=== PATIENT | male | born 1995 | race Caucasian/White ===

== ENCOUNTER 2017-07-04 00:06 | Inpatient (IN) ==
[2017-07-04] MEDS ORDERED: hydrOXYzine pamoate 25 MG CAPSULE PO PRN (00:13)
[2017-07-04] MEDS ORDERED: traZODone 50 MG TABLET PO PRN (00:13)
[2017-07-04] MEDS ORDERED: Mag Hydrox/Al Hydrox/Simeth 30 ML UDC PO PRN (00:13)
[2017-07-04] MEDS ORDERED: *HR* LORazepam 1 MG TABLET PO PRN (00:13)
[2017-07-04] MEDS ORDERED: Acetaminophen 325 MG TABLET PO PRN (00:13)
[2017-07-04] MEDS ORDERED: MOM Conc 10 ML UD.LIQ PO PRN (00:13)
[2017-07-04] MEDS ORDERED: *HR* LORazepam 2 MG/ML VIAL IM PRN (00:13)
[2017-07-04] MEDS ORDERED: Haloperidol Lactate 5 MG/ML VIAL IM PRN (00:13)
[2017-07-04] MEDS: Nicotine 2 MG GUM BC PRN ×2 (10:17→20:46)
--- NOTE | 2017-07-04 10:58 | Psychiatry History & Physical ---
Date of Encounter: 07/04/17 Time of Encounter: 10:00 History of Present Illness Patient Stated Chief Complaint: Suicidal ideation Medicare Admission Attestation: For traditional Medicare patients the provided hospital inpatient services are reasonable and necessary and in the case of services not specified as inpatient -only under 42 CFR 419.22 (n), that they are appropriately provided as inpatient services in accordance 42 CFR 412.3. For Critical Access Hospital the patient may reasonably be expected to be discharged or transferred to a hospital within 96 hours after admission to the Critical Access Hospital. Admitted From: Hospital to Hospital Transfer ([facility]) History of Present Illness: Mr. Pack is a 22 year old male transferred from [facility] for suicidal ideation with plans to shoot himself. Patient is currently in a drug rehabilitation program and prior to this she was in alf for 2 weeks, he relapsed using drugs including marijuana and cocaine, Suboxone and others. He is court-ordered for 120 days treatment. Patient is stressed out by some domestic and relationship issues, cheating, on his significant other. He reports poor sleep, irritability , mood swings and suicidal ideation with plan to shoot himself in addition to being angry at people and making homicidal threats without specific. Patient had previous hospitalization in this hospital last year and also hospitalization at [facility] and [facility]. UDS reported negative. Past Med Surg Social Fam HX - Past Medical History Medical history: hepatitis, other - Past Psychiatric History Psychiatric history: Reports: depression, prior suicide attempt, previous psychiatric hospitalization Past psychiatric history details: Hospitalization in 2015. - Past Surgical History Surgical History: appendectomy - Social History Smoking Status: Current every day smoker Smokeless Tobacco Status: No Alcohol use: occasionally Drug use: opiates, marijuana, methamphetamine, IV Drug Use Medications & Allergies No Known Home Drugs 07/04/17 [History] 3 Allergy/AdvReac Type Severity Reaction Status Date / Time tramadol [From Ultram] Allergy Rash Verified 06/06/17 12:19 Review of Systems Psychiatric: Reports: suicidal ideation, homicidal ideation, irritability, mood swings Mental Status Exam Patient orientation: Yes Person, Yes Time, Yes Place Level of alertness: Alert Patient appearance: Appropriate, Unkempt Behavior: calm, cooperative, anxious Psychomotor activity: Increased Eye contact: Maintains Eye Contact Mood description: Euthymic/stable, Angry, Irritable Affect description: congruent with mood, labile Speech pattern: Normal rate, Normal rhythm, Normal tone Speech volume: Normal Thought process: Linear, Goal Oriented Thought content: Yes Suicidal ideation, Yes Homicidal ideation, No Overt delusions Perceptual disturbances: No Auditory hallucinations, No Visual hallucinations Attention span: Capable of Focused Attention Memory description: Grossly Intact Patient reliability: Reliable Historian Intelligence estimate: Average Judgment: Limited Insight: Partial Results - Vital Signs Vital signs: Temp Pulse Resp BP 98 F 65 16 133/84 07/04/17 09:00 07/04/17 09:00 07/04/17 09:00 07/04/17 09:00 Assessment and Plan (1) Suicidal behavior Current visit: No Status: Acute Plan: Admit inpatient for safety and stabilization, Close observation, Suicide Precautions per unit protocol, Encourage participation in unit milieu, Group Therapy, Monitor sleep, Monitor appetite Additional Plan: Discussed medication treatment was patient. We will order citalopram 20 mg daily, and Abilify 10 mg daily. Benefits and side effects were discussed patient is agreeable to start and will monitor Patient also was educated about substance abuse and need to continue sobriety. Risks, benefits, side effects, alternatives discussed w/pt: Yes Patient agreeable to treatment: Yes Qualifiers: Attempted self-injury: with attempted self-injury Qualified Code(s): T14.91XA - Suicide attempt, initial encounter (2) Substance abuse or dependence Current visit: No Status: Chronic Plan: Admit inpatient for safety and stabilization, Close observation, Suicide Precautions per unit protocol, Encourage participation in unit milieu, Group Therapy, Monitor sleep, Monitor appetite Risks, benefits, side effects, alternatives discussed w/pt: Yes Patient agreeable to treatment: Yes
[2017-07-04] MEDS: ARIPiprazole 10 MG TABLET PO SCH (11:54)
[2017-07-05] MEDS: ARIPiprazole 10 MG TABLET PO SCH (09:13)
[2017-07-05] MEDS: Nicotine 2 MG GUM BC PRN (12:14)
--- NOTE | 2017-07-05 14:32 | Psychiatry Progress Note ---
Date of Encounter: 07/05/17 Time of Encounter: 14:28 Subjective Interval history: Patient she will follow up. Staff report he is compliant with medication, cooperative and participated in activities. 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 He is not endorsing suicidal or homicidal ideation and denies any side effects to medication. He denies any irritability or mood swings. Review of Systems Psychiatric: Reports: suicidal ideation, homicidal ideation, irritability, mood swings Objective: Exam Patient orientation: Yes Person, Yes Time, Yes Place Level of alertness: Alert Patient appearance: Appropriate, Well Groomed Behavior: calm, cooperative Psychomotor activity: Normal Eye contact: Maintains Eye Contact Mood description: Euthymic/stable, Labile Affect description: congruent with mood, labile Speech pattern: Normal rate, Normal rhythm, Normal tone Speech volume: Normal Thought process: Linear, Goal Oriented Thought content: No Suicidal ideation, No Homicidal ideation, No Overt delusions Perceptual disturbances: No Auditory hallucinations, No Visual hallucinations Judgment: Fair Insight: Partial Results - Vital Signs Vital Signs: Temp Pulse Resp BP 98.0 F 74 16 126/92 07/05/17 09:00 07/05/17 09:00 07/05/17 09:00 07/05/17 09:00 Assessment and Plan (1) Suicidal behavior Current visit: No Status: Acute Plan: Continue hospitalization, Close observation, Suicide Precautions per unit protocol, Encourage participation in unit milieu, Group Therapy, Monitor sleep, Monitor appetite Risks, benefits, side effects, alternatives discussed w/pt: Yes Patient agreeable to treatment: Yes Qualifiers: Attempted self-injury: with attempted self-injury Qualified Code(s): T14.91XA - Suicide attempt, initial encounter (2) Substance abuse or dependence Current visit: No Status: Chronic Plan: Continue hospitalization, Close observation, Suicide Precautions per unit protocol, Encourage participation in unit milieu, Group Therapy, Monitor sleep, Monitor appetite Risks, benefits, side effects, alternatives discussed w/pt: Yes Patient agreeable to treatment: Yes Consult Discharge Plan - Plan Referrals: NONE,PCP [Primary Care Provider] -
[2017-07-06 09:00] VITALS: BP 143/86
[2017-07-06] MEDS: ARIPiprazole 10 MG TABLET PO SCH (09:05)
[2017-07-06] MEDS: Nicotine 2 MG GUM BC PRN (14:08)
--- NOTE | 2017-07-06 14:58 | Discharge Summary ---
Date of Encounter: 07/06/17 Time of Encounter: 14:51 Diagnosis - Discharge Diagnosis (1) Suicidal behavior Status: Acute Qualifiers: Attempted self-injury: with attempted self-injury Qualified Code(s): T14.91XA - Suicide attempt, initial encounter (2) Substance abuse or dependence Status: Chronic Medications - Discharge Medications Prescriptions: ARIPiprazole [Abilify] 10 mg PO DAILY #30 tablet Citalopram [CeleXA] 20 mg PO DAILY #30 tablet traZODone [TraZODone] 50 mg PO HS PRN #30 tablet PRN Reason: Insomnia ARIPiprazole [Abilify] 10 mg PO DAILY #30 tablet 07/06/17 [Rx] Citalopram [CeleXA] 20 mg PO DAILY #30 tablet 07/06/17 [Rx] traZODone [TraZODone] 50 mg PO HS PRN #30 tablet 07/06/17 [Rx] 3 Allergy/AdvReac Type Severity Reaction Status Date / Time tramadol [From Ultra] Allergy Rash Verified 06/06/17 12:19 Provider Date of admission: 07/04/17 00:06 Primary care physician: PCP NONE Consults: 07/04/17 00:51 Consult to Pastoral Services [CONS] Routine Comment: Discharging clinician: Fili Wahl Assessment and Plan - Patient/Caregiver Discharge Instructions Activity: resume usual activities as tolerated Diet: regular diet - Follow up Plan Follow up with: [facility] Rylan Workman [Outside] - 08/10/17 9:00 am (The above appointment is with Dr. Marichuy Campuzano for outpatient psychiatric assessment and medication management services. Please arrive 15 minutes early to complete paperwork. Please bring your insurance card, photo ID and medications in their original bottles. If you do not have insurance, bring proof of income to apply for the sliding fee scale. If you are unable to keep this appointment, 24 hour business notice of cancellation is expected. The above appointment(s) reflects first availability. You may contact the office regularly to check for cancellations that may allow you to be seen sooner.) [facility] [Outside] - 07/11/17 1:00 pm (The above appointment is with [facility] for outpatient substance abuse and mental health counseling services. ) Functional capacity at discharge: independent ambulation Overall status at discharge: Stable Disposition: Home, Self-Care Hospital Course Hospital course: Mr. Pack is a 22 year old male admitted for depression and suicidal ideation. For details of the admission please see H&P On the unit patient was started on Abilify, Celexa and trazodone. Patient reported improved sleep, less anxiety, no racing thoughts. He participated in activities. He denies suicidal ideation he was motivated to continue his treatment as outpatient. His discharge plans were completed by social work. On discharge patient was medically stable nonsuicidal. He was educated about substance abuse and compliance with treatment. He is discharged in stable condition. - Time Spent with Patient Total time spent providing and/or coordinating discharge services: Less than 30 minutes Quality - Multiple Antipsychotics Patient discharged on 2 or more antipsychotic medications: No Procedures - Procedures Procedures: Medication Management, Crisis Stabilization, Supportive Therapy, Group Therapy, Psychoeducational Therapy Mental Status Exam - Mental Status Exam Patient orientation: Yes Person, Yes Time, Yes Place Level of alertness: Alert Patient appearance: Appropriate, Well Groomed Behavior: calm, cooperative Psychomotor activity: Normal Eye contact: Maintains Eye Contact Mood description: Euthymic/stable Affect description: congruent with mood, full range Speech pattern: Normal rate, Normal rhythm, Normal tone Speech Volume: Normal Thought process: Linear, Goal Oriented Thought Content: No Suicidal ideation, No Homicidal ideation, No Overt delusions Perceptual Disturbances: No Auditory hallucinations, No Visual hallucinations Judgment: Limited Insight: Partial
== END 2017-07-06 17:55 | disposition home or self-care (01) | DRG 754 ==
LOC: 1ANU 00:06
PROVIDERS: ADMIT Psychiatry & Neurology Psychiatry; ATTEND Psychiatry & Neurology Psychiatry

== ENCOUNTER 2018-05-14 17:03 | Inpatient (IN) ==
--- NOTE | 2018-05-14 18:06 | Emergency Department Note ---
Disposition Clinical Impression: Suicidal ideation Disposition: Still a Patient Referrals: NONE,PCP [Primary Care Provider] - Forms: ED Satisfaction Letter Time of Disposition: 19:19 General Adult HPI - General Chief complaint: ED Psychiatric Symptoms Stated complaint: SI Time Seen by Provider: 05/14/18 18:04 Source: patient Limitations: no limitations - History of Present Illness HPI Narrative: This is a 20-year-old male who states he has a meth and heroin addict and has not had any of either for the last few days who states that he has been feeling like getting a gun from a friend and killing himself. He has been feeling this way for 2 days. States he has not taken Abilify her Celexa for the last 2 months. Pain Scale: 8 - Related Data Previous Rx's Medication Instructions Recorded Clindamycin HCl 450 mg PO TID 10 Days capsule 08/23/17 Allergies Allergy/AdvReac Type Severity Reaction Status Date / Time tramadol [From Ultra] Allergy Rash Verified 05/14/18 17:15 All systems ED: reviewed and negative except as stated. Psychiatric: Reports: suicidal thoughts Past Medical History - Past Medical History Medical history: Reports: hepatitis Surgical history: Reports: appendectomy Psychiatric history: Reports: depression, prior suicide attempt, previous psychiatric hospitalization - Social History Smoking Status: Current every day smoker Smokeless Tobacco Status: No Alcohol use: Reports: occasionally Drug use: Reports: opiates, marijuana, methamphetamine, IV Drug Use Physical Exam - General Limitations: no limitations General appearance: alert, in no apparent distress - Head Head exam: atraumatic, normocephalic, normal inspection - Eye Eye exam: Present: normal appearance, PERRL, EOMI - Chest Chest inspection: Present: normal inspection, symmetric chest wall rise - Respiratory Respiratory exam: Present: normal lung sounds bilaterally - Cardiovascular Cardiovascular exam: Present: regular rate, normal rhythm, normal heart sounds - Abdominal Exam Abdominal exam: Present: soft, Non-Tender. Absent: tenderness, distention, guarding, rebound, rigidity - Extremities Exam Extremities exam: Present: normal inspection, full ROM. Absent: tenderness, pedal edema - Neurological Exam Neurological exam: Present: alert, oriented X3 - Psychiatric Psychiatric exam: Present: depressed, suicidal ideation - Skin Skin exam: Present: warm, dry, rash Course Course Narrative: This is a 25-year-old male with suicidal ideation and apparently prior attempts. Vital Signs Temperature 97.9 F 05/14/18 17:14 Pulse Rate 79 05/14/18 17:14 Respiratory Rate 16 05/14/18 17:14 Blood Pressure 143/79 05/14/18 17:14 O2 Sat by Pulse Oximetry 97 05/14/18 17:14 Temperature 97.9 F 05/14/18 17:49 Pulse Rate 79 05/14/18 17:49 Respiratory Rate 16 05/14/18 17:49 Blood Pressure 143/79 05/14/18 17:49 O2 Sat by Pulse Oximetry 97 05/14/18 17:49 Oxygen Delivery Oxygen Delivery Room Air Medical Decision Making - MDM Narrative Medical decision making narrative: This is a 23-year-old male with heroin and meth abuse who reports suicidal ideation, having not taken his antipsychotic or antidepressant for more than 2 months. - Lab Data Lab results narrative: CBC was unremarkable Result diagrams: 05/14/18 18:13 Lab Results 05/14/18 Range/Units 18:13 WBC 3.9 L (4.3-11.1) K/mcL RBC 4.78 (4.19-5.50) M/mcL Hgb 14.1 (12.9-16.9) g/dL Hct 41.4 (37.5-50.1) % MCV 86.6 (83.0-100.0) fL MCH 29.5 (28.0-33.3) pg MCHC 34.1 (31.6-35.5) g/dL RDW 12.1 (11.5-14.5) % Plt Count 173 (140-400) K/mcL MPV 10.4 (9.4-12.4) fL Immature Gran % 0.5 (0-4) % Seg Neutrophils % 74.1 % Lymphocytes % 11.8 % Monocytes % 10.0 % Eosinophils % 3.1 % Basophils % 0.5 % Neutrophils # 2.9 (1.6-8.9) K/mcL Lymphocytes # 0.5 L (0.6-4.6) K/mcL Monocytes # 0.4 (0.0-1.3) K/mcL Eosinophils # 0.1 (0.0-0.6) K/mcL Basophils # 0.0 (0.0-0.2) K/mcL
[2018-05-14 18:57] LABS: Basophils % 0.5 %; Eosinophils # 0.1 K/mcL (0.0-0.6); Eosinophils % 3.1 %; Hematocrit 41.4 % (37.5-50.1); Hemoglobin 14.1 g/dL (12.9-16.9); Immature Granulocytes % 0.5 % (0-4); Lymphocytes # 0.5 K/mcL (0.6-4.6); Lymphocytes % 11.8 %; Mean Corpuscular HGB Conc 34.1 g/dL (31.6-35.5); Mean Corpuscular Hemoglobin 29.5 pg (28.0-33.3); Mean Corpuscular Volume 86.6 fL (83.0-100.0); Mean Platelet Volume 10.4 fL (9.4-12.4); Monocytes # 0.4 K/mcL (0.0-1.3); Neutrophils # 2.9 K/mcL (1.6-8.9); Platelet Count 173 K/mcL (140-400); Red Blood Count 4.78 M/mcL (4.19-5.50); Red Cell Distribution Width 12.1 % (11.5-14.5); Segmented Neutrophils % 74.1 %
[2018-05-14 19:18] LABS: Acetaminophen < 10 mcg/mL (10-20); BUN/Creatinine Ratio 13 (6-26); Blood Urea Nitrogen 12 mg/dL (6-20); Calcium 8.9 mg/dL (8.6-10.3); Carbon Dioxide 27 mEq/L (23-29); Chloride 99 mEq/L (98-107); Ethanol < 10 mg/dL (Less than 10); Glucose 111 mg/dL (70-105); Osmolality,Calculated 272 (280-300); Potassium 3.9 mEq/L (3.5-5.1); Salicylate < 2.5 mg/dL (15.0-30.0); Sodium 131 mEq/L (136-145); eGFR For Non-African Americans > 60 (> 60)
[2018-05-14 19:47] LABS: Bilirubin,Urine Negative (Negative); Blood,Urine Negative (Negative); Clarity,Urine Clear (Clear); Color,Urine Yellow (Yellow); Glucose,Urine (UA) Normal (Normal); Ketones,Urine Negative (Negative); Leukocyte Esterase,Urine Negative (Negative); Nitrite,Urine Negative (Negative); Protein,Urine Negative (Neg-Trace); Specific Gravity,Urine 1.015 (1.010-1.025); Urobilinogen,Urine >=8.0 mg/dL (Normal)
[2018-05-14 19:56] LABS: Amphetamine Screen,Urine Positive ng/mL (Cutoff=1000); Barbiturate Screen,Urine Negative ng/mL (Cutoff=200); Benzodiazepines Screen,Urine Negative ng/mL (Cutoff=200); Cannabinoid Screen,Urine Positive ng/mL (Cutoff = 50); Cocaine Screen,Urine Negative ng/mL (Cutoff= 300); Opiate Screen,Urine Positive ng/mL (Cutoff=300); Phencyclidine Screen,Urine Negative ng/mL (Cutoff=25)
[2018-05-15] MEDS ORDERED: Haloperidol Lactate 5 MG/ML VIAL IM PRN (00:02)
[2018-05-15] MEDS ORDERED: hydrOXYzine pamoate 25 MG CAPSULE PO PRN (00:02)
[2018-05-15] MEDS ORDERED: Acetaminophen 325 MG TABLET PO PRN (00:02)
[2018-05-15] MEDS ORDERED: Nicotine 2 MG GUM BC PRN (00:02)
[2018-05-15] MEDS ORDERED: MOM Conc 10 ML UD.LIQ PO PRN (00:02)
[2018-05-15] MEDS ORDERED: *HR* LORazepam 1 MG TABLET PO PRN (00:02)
[2018-05-15] MEDS ORDERED: *HR* LORazepam 2 MG/ML VIAL IM PRN (00:02)
[2018-05-15] MEDS ORDERED: Mag Hydrox/Al Hydrox/Simeth 30 ML UDC PO PRN (00:02)
[2018-05-15] MEDS ORDERED: Ondansetron ODT 4 MG TAB.RAPDIS SL PRN (10:49)
--- NOTE | 2018-05-15 10:55 | Psychiatry History & Physical ---
Date of Encounter: 05/15/18 Time of Encounter: 10:45 History of Present Illness Patient Stated Chief Complaint: I had suicidal thinking, I came in before I complerted suicdie Medicare Admission Attestation: For traditional Medicare patients the provided hospital inpatient services are reasonable and necessary and in the case of services not specified as inpatient -only under 42 CFR 419.22 (n), that they are appropriately provided as inpatient services in accordance 42 CFR 412.3. For Critical Access Hospital the patient may reasonably be expected to be discharged or transferred to a hospital within 96 hours after admission to the Critical Access Hospital. Admitted From: Emergency Dept Plans for Post Hospital Care: Home History of Present Illness: Mr. Pack is a 23 year old male The patient is a 23-year-old single white male. The patient was admitted from the emergency room. Chief complaint suicidal thinking, I wanted to get admitted before acted on these thoughts. History of present illness. The patient is a fair historian and is able to provide an interval history. I also relied on the discharge summary of 2015. The patient has had 2 suicide attempts the first was age 17 when he tried to hang himself and he was sent to [facility]. The second was an overdose of Tylenol and this is summarized in the 2016 summary. In the past patient was treated for major depression recurrent severe. The patient has had no recent treatment. He is currently trying to get into rehabilitation. He had been in a rehabilitation program but he left the program. He wanted to use he wanted to get high. The patient has previously been treated with Suboxone. He says it got him strung out. The patient has never been treated with methadone. The patient has been on long acting naltrexone. He received a few injections while he maintained sobriety from opiates he was using other drugs during the time. The patient's current problem is with heroin and methamphetamine. He is using and his last use was May 13. The drug screen was positive for heroin and methamphetamine and marijuana. The patient is currently on probation. He has a few years hanging over head he has not reported to his by mouth lately. The patient was told that he needed to get clean and to go to rehabilitation or he would go to skilled nursing. The past psychiatric history: [facility] Past medical history: Surgeries: Appendix Illnesses: Hepatitis C Allergies: Tramadol Medicines Abilify and Celexa dose unknown last take 45 days ago. PCP none Family history: Mom nerve problem dad and mother had a drug problem dad also had an alcohol problem no history of suicide or Social history grew up in [facility] sixth-grade he fathered a child. 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 He has no work history. 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 Review of systems significant for "opiate withdrawal symptoms also cramps. pain , sweats Past Med Surg Social Fam HX - Past Medical History Source: patient Medical history: hepatitis - Past Psychiatric History Psychiatric history: Reports: previous psychiatric hospitalization Family psychiatric history: Yes Family History of Suicide: None - Past Surgical History Surgical History: appendectomy - Social History Smoking Status: Current every day smoker Smokeless Tobacco Status: No Alcohol use: occasionally Drug use: opiates, marijuana, methamphetamine, IV Drug Use Occupational status: unemployed Current living situation: Homeless Activity Level: Independent ambulation Recent Out of Country Travel Within the Last 8 Weeks: No Exposure or Possible Exposure to Illness During Travel: No Medications & Allergies Clindamycin HCl 450 mg PO TID 10 Days capsule 08/23/17 [Rx] 3 Allergy/AdvReac Type Severity Reaction Status Date / Time tramadol [From [facility]] Allergy Rash Verified 05/14/18 17:15 Review of Systems Constitutional: Reports: night sweats Eyes: Denies: eye pain, vision change Ears, Nose, Throat: Denies: ear pain, throat pain, dental pain, hearing loss, congestion Cardiovascular: Denies: chest pain, palpitations, dyspnea on exertion Respiratory: Denies: cough, dyspnea, wheezes Gastrointestinal: Reports: abdominal pain, nausea Genitourinary male: Denies: urgency, dysuria, frequency, genital lesions Musculoskeletal: Reports: joint pain, myalgia Integumentary: Denies: rash, lesions, pruritus Neurological: Denies: headache, weakness, numbness, memory loss Psychiatric: Reports: depression, abnormal sleep pattern, suicidal ideation Endocrine: Reports: fatigue Hematologic/Lymphatic: Denies: easy bruising, lymphadenopathy Allergic/Immunologic: Denies: urticaria, itchy eyes Exam - HEENT Head exam IM: Present: atraumatic Eye exam IM: Present: EOMI, normal appearance, PERRL ENT exam IM: Present: normal exam - Neurological Neurological exam: Present: CN II-XII intact - Respiratory Respiratory exam IM: Present: CTAB - GI/Abdominal GI/Abdominal exam IM: Present: normal bowel sounds, soft. 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 He declined. The patient completed a limited physical exam. - Constitutional Vitals: Temp Pulse Resp BP Pulse Ox 100.1 F H 75 16 93/65 97 05/15/18 09:00 05/15/18 09:00 05/15/18 09:00 05/15/18 09:00 05/14/18 17:49 General appearance: age & developmentally appropriate, thin - Musculoskeletal Gait: normal Station: relaxed Strength & Tone: normal for patient - Psychiatric Patient Orientation: Yes Person, Yes Time, Yes Place Level of alertness: Alert Behavior: calm, withdrawn Psychomotor activity: Slowed Eye Contact: Maintains Eye Contact Mood Description: Depressed Affect description: congruent with mood, dysphoric Speech Volume: Normal Speech pattern: normal rate, normal rhythm, normal tone, fluent, spontaneous Language & Vocabulary: consistent with education Thought Process: Linear, Goal Oriented Thought Content: Yes Suicidal ideation, No Homicidal ideation, No Overt delusions Perceptual Disturbances: No Auditory hallucinations, No Visual hallucinations Attention Span Ability: Capable of Sustained Attention Memory Description: Grossly Intact Patient Reliability: Reliable Historian Fund of knowledge: Yes abstraction ability, Yes average Intelligence Estimate: Average Judgment: Limited Insight: Minimal Results - Labs Labs: Laboratory Last Values WBC 3.9 K/mcL (4.3-11.1) L 05/14/18 18:13 RBC 4.78 M/mcL (4.19-5.50) 05/14/18 18:13 Hgb 14.1 g/dL (12.9-16.9) 05/14/18 18:13 Hct 41.4 % (37.5-50.1) 05/14/18 18:13 MCV 86.6 fL (83.0-100.0) 05/14/18 18:13 MCH 29.5 pg (28.0-33.3) 05/14/18 18:13 MCHC 34.1 g/dL (31.6-35.5) 05/14/18 18:13 RDW 12.1 % (11.5-14.5) 05/14/18 18:13 Plt Count 173 K/mcL (140-400) 05/14/18 18:13 MPV 10.4 fL (9.4-12.4) 05/14/18 18:13 Immature Gran % 0.5 % (0-4) 05/14/18 18:13 Seg Neutrophils % 74.1 % 05/14/18 18:13 Lymphocytes % 11.8 % 05/14/18 18:13 Monocytes % 10.0 % 05/14/18 18:13 Eosinophils % 3.1 % 05/14/18 18:13 Basophils % 0.5 % 05/14/18 18:13 Neutrophils # 2.9 K/mcL (1.6-8.9) 05/14/18 18:13 Lymphocytes # 0.5 K/mcL (0.6-4.6) L 05/14/18 18:13 Monocytes # 0.4 K/mcL (0.0-1.3) 05/14/18 18:13 Eosinophils # 0.1 K/mcL (0.0-0.6) 05/14/18 18:13 Basophils # 0.0 K/mcL (0.0-0.2) 05/14/18 18:13 Sodium 131 mEq/L (136-145) L 05/14/18 18:13 Potassium 3.9 mEq/L (3.5-5.1) 05/14/18 18:13 Chloride 99 mEq/L (98-107) 05/14/18 18:13 Carbon Dioxide 27 mEq/L (23-29) 05/14/18 18:13 BUN 12 mg/dL (6-20) 05/14/18 18:13 Creatinine 0.90 mg/dL (0.70-1.30) 05/14/18 18:13 Est GFR ( Amer) > 60 (> 60) 05/14/18 18:13 Est GFR (Non-Af Amer) > 60 (> 60) 05/14/18 18:13 BUN/Creatinine Ratio 13 (6-26) 05/14/18 18:13 Glucose 111 mg/dL (70-105) H 05/14/18 18:13 Calculated Osmolality 272 (280-300) L 05/14/18 18:13 Calcium 8.9 mg/dL (8.6-10.3) 05/14/18 18:13 Urine Color Yellow (Yellow) 05/14/18 19: Urine Clarity Clear (Clear) 05/14/18 19: Urine pH 7.0 pH Units (5.0-8.0) 05/14/18 19: Ur Specific [place] 1.015 (1.010-1.025) 05/14/18 19: Urine Protein Negative mg/dL (Neg-Trace) 05/14/18: Urine Glucose (UA) Normal mg/dL (Normal) 05/14/18 19: Urine Ketones Negative mg/dL (Negative) 05/14/18: Urine Blood Negative (Negative) 05/14/18: Urine Nitrite Negative (Negative) 05/14/18: Urine Bilirubin Negative (Negative) 05/14/18: Urine Urobilinogen >=8.0 mg/dL (Normal) H 05/14/18 19:29 Ur Leukocyte Esterase Negative (Negative) 05/14/18 19: Ur Culture Indicated? NO (NO) 05/14/18 19:29 Salicylates < 2.5 mg/dL (15.0-30.0) L 05/14/18 18:13 Urine Opiates Screen Positive ng/mL (Rtmkkf=644) H 05/14/18 19:29 Acetaminophen < 10 mcg/mL (10-20) L 05/14/18 18:13 Ur Barbiturates Screen Negative ng/mL (Fibcqv=587) 05/14/18 19: Ur Phencyclidine Scrn Negative ng/mL (Cutoff=25) 05/14/18 19:29 Ur Amphetamines Screen Positive ng/mL (Pkimay=6623) H 05/14/18 19: U Benzodiazepines Scrn Negative ng/mL (Tpboss=936) 05/14/18 19: Urine Cocaine Screen Negative ng/mL (Cutoff= 300) 05/14/18: U Marijuana (THC) Screen Positive ng/mL (Cutoff = 50) H 05/14/18 19:29 Ur Drug Screen Interp See Below 05/14/18 19: Ethyl Alcohol < 10 mg/dL (Less than 10) 05/14/18 18:13 Assessment and Plan (1) Major depressive disorder, recurrent severe without psychotic features Current visit: Yes Status: Acute Plan: Admit inpatient for safety and stabilization, Close observation, Suicide Precautions per unit protocol, Encourage participation in unit milieu, Group Therapy, Monitor sleep, Monitor appetite, Secure weapons Risks, benefits, side effects, alternatives discussed w/pt: Yes Patient agreeable to treatment : Yes Plans for Post Hospital Care: Home Estimated Length of Stay (Days): 8 (2) Opioid dependence with withdrawal Current visit: Yes Status: Acute Plan: Monitor sleep, Monitor appetite Risks, benefits, side effects, alternatives discussed w/pt: Yes Patient agreeable to treatment: Yes Plans for Post Hospital Care: Home (3) Cigarette smoker two packs a day or less Current visit: Yes Status: Chronic Plan: Other Risks, benefits, side effects, alternatives discussed w/pt: Yes Patient agreeable to treatment: Yes Plans for Post Hospital Care: Home (4) Suicidal ideation Current visit: Yes Status: Acute Plan: Suicide Precautions per unit protocol, Encourage participation in unit milieu, Secure weapons Risks, benefits, side effects, alternatives discussed w /pt: Yes Patient agreeable to treatment: Yes Plans for Post Hospital Care: Home
[2018-05-15] MEDS: Baclofen 10 MG TABLET PO SCH ×3 (11:42→21:19)
[2018-05-15] MEDS: cloNIDine HCl 0.1 MG TABLET PO SCH ×3 (11:42→21:20)
[2018-05-15] MEDS: ARIPiprazole 2 MG TABLET PO SCH (21:19)
[2018-05-16] MEDS: cloNIDine HCl 0.1 MG TABLET PO SCH ×3 (09:01→21:25)
[2018-05-16] MEDS: Baclofen 10 MG TABLET PO SCH ×3 (09:01→21:25)
--- NOTE | 2018-05-16 13:45 | Psychiatry Progress Note ---
Date of Encounter: 05/16/18 Time of Encounter: 13:15 Subjective Interval history: D the patient is a 23-year-old white male. He was seen at bedside per his request. Chief complaint I feel terrible. I have a headache have nausea. History of present illness. The patient has been admitted for major depression and opiate withdrawal. He is being treated with comfort meds but continues to have sweats nausea sedation myalgias. He is complained of a headache. Patient has a variety of legal problems as well. Suicidal ideation continues but is monitored. The patient asked for no additional medicines to help his treatment at this time. Review of Systems Musculoskeletal: Reports: joint pain, myalgia Integumentary: Reports: other Neurological: Reports: headache Psychiatric: Reports: depression, abnormal sleep pattern, suicidal ideation, irritability Allergic/Immunologic: Reports: other Results - Vital Signs Vital Signs: Temp Pulse Resp BP Pulse Ox 98.7 F 98 22 98/65 97 05/16/18 09:00 05/16/18 09:00 05/16/18 09:00 05/16/18 09:00 05/14/18 17:49 Assessment and Plan (1) Major depressive disorder, recurrent severe without psychotic features Current visit: Yes Status: Acute Plan: Continue hospitalization, Close observation, Suicide Precautions per unit protocol, Encourage participation in unit milieu, Group Therapy, Monitor sleep, Monitor appetite, Secure weapons Risks, benefits, side effects, alternatives discussed w/pt: Yes Patient agreeable to treatment: Yes (2) Opioid dependence with withdrawal Current visit: Yes Status: Acute Plan: Monitor sleep, Monitor appetite, Other Risks, benefits, side effects, alternatives discussed w/pt: Yes Patient agreeable to treatment: Yes (3) Cigarette smoker two packs a day or less Current visit: Yes Status: Chronic Plan: Other Risks, benefits, side effects, alternatives discussed w/pt: Yes Patient agreeable to treatment: Yes (4) Suicidal ideation Current visit: Yes Status: Acute Plan: Suicide Precautions per unit protocol, Encourage participation in unit milieu, Secure weapons Risks, benefits, side effects, alternatives discussed w /pt: Yes Patient agreeable to treatment: Yes Consult Discharge Plan - Plan Referrals: NONE,PCP [Primary Care Provider] - Psychiatry Exam - Constitutional Vitals: Temp Pulse Resp BP Pulse Ox 98.7 F 98 22 98/65 97 05/16/18 09:00 05/16/18 09:00 05/16/18 09:00 05/16/18 09:00 05/14/18 17:49 General appearance: age & developmentally appropriate, well-groomed, well- nourished - Musculoskeletal Gait: slow Strength & Tone: normal for patient - Psychiatric Patient Orientation: Yes Person, Yes Time, Yes Place Level of alertness: Alert Behavior: withdrawn Psychomotor activity: Slowed Eye Contact: Minimal Contact Mood Description: Irritable Affect description: congruent with mood, constricted, dysphoric Speech Volume: Normal Speech pattern: normal rate, normal rhythm, normal tone, fluent, spontaneous Language & Vocabulary: consistent with education Thought Process: Linear, Goal Oriented Thought Content: Yes Suicidal ideation, No Homicidal ideation, No Overt delusions Perceptual Disturbances: No Auditory hallucinations, No Visual hallucinations Attention Span Ability: Capable of Focused Attention Memory Description: Grossly Intact Patient Reliability: Reliable Historian Fund of knowledge: Yes abstraction ability, Yes aware of current events Intelligence Estimate: Average Judgment: Limited Insight: Minimal
[2018-05-16] MEDS: ARIPiprazole 2 MG TABLET PO SCH (21:25)
[2018-05-17] MEDS: traZODone 50 MG TABLET PO PRN ×2 (01:38→20:57)
[2018-05-17] MEDS: Baclofen 10 MG TABLET PO SCH ×3 (09:39→20:58)
[2018-05-17] MEDS: cloNIDine HCl 0.1 MG TABLET PO SCH ×3 (09:39→20:58)
--- NOTE | 2018-05-17 15:58 | Psychiatry Progress Note ---
Date of Encounter: 05/17/18 Time of Encounter: 15:45 Subjective Interval history: ID the patient is a 23-year-old white male. Chief complaint I am feeling better but still a little rough. History of present illness the patient continues to have depression he is tolerating citalopram at 10 mg and Abilify 2 mg. He notes his depression is still a problem but he is focused on sobriety. The patient would like to go stay with his grandmother until he can locate a rehabilitation program. The patient has tolerated the medicines for withdrawal. His had no significant EPS. He notes no suicidal plan while on the unit but remains under observation Review of Systems Psychiatric: Reports: depression, abnormal sleep pattern, suicidal ideation, irritability Results - Vital Signs Vital Signs: Temp Pulse Resp BP Pulse Ox 98 F 69 18 119/77 97 05/17/18 09:00 05/17/18 09:00 05/17/18 09:00 05/17/18 09:00 05/14/18 17:49 Assessment and Plan (1) Major depressive disorder, recurrent severe without psychotic features Current visit: Yes Status: Acute Plan: Continue hospitalization, Close observation, Suicide Precautions per unit protocol, Encourage participation in unit milieu, Group Therapy, Monitor sleep, Monitor appetite, Secure weapons, Family/Supportive other meeting Risks, benefits, side effects, alternatives discussed w/pt: Yes Patient agreeable to treatment: Yes (2) Opioid dependence with withdrawal Current visit: Yes Status: Acute Plan: Other Risks, benefits, side effects, alternatives discussed w/pt: Yes Patient agreeable to treatment: Yes (3) Cigarette smoker two packs a day or less Current visit: Yes Status: Chronic Risks, benefits, side effects, alternatives discussed w/pt: Yes Patient agreeable to treatment: Yes (4) Suicidal ideation Current visit: Yes Status: Acute Risks, benefits, side effects, alternatives discussed w/pt: Yes Patient agreeable to treatment: Yes Consult Discharge Plan - Plan Referrals: NONE,PCP [Primary Care Provider] - Psychiatry Exam - Constitutional Vitals: Temp Pulse Resp BP Pulse Ox 98 F 69 18 119/77 97 05/17/18 09:00 05/17/18 09:00 05/17/18 09:00 05/17/18 09:00 05/14/18 17:49 General appearance: age & developmentally appropriate, well-groomed, well- nourished - Musculoskeletal Gait: normal Station: relaxed Strength & Tone: normal for patient - Psychiatric Patient Orientation: Yes Person, Yes Time, Yes Place Level of alertness: Sedated Behavior: calm, cooperative Affect description: congruent with mood, full range, dysphoric Speech Volume: Normal Speech pattern: normal rate, normal rhythm, normal tone, fluent, spontaneous Language & Vocabulary: consistent with education Thought Process: Linear, Goal Oriented Thought Content: Yes Suicidal ideation, No Homicidal ideation, No Overt delusions Perceptual Disturbances: No Auditory hallucinations, No Visual hallucinations Attention Span Ability: Capable of Focused Attention Memory Description: Grossly Intact Patient Reliability: Questionable Historian Fund of knowledge: Yes abstraction ability, Yes aware of current events Intelligence Estimate: Average Judgment: Limited Insight: Minimal
[2018-05-17] MEDS: ARIPiprazole 2 MG TABLET PO SCH (20:57)
[2018-05-18] MEDS: cloNIDine HCl 0.1 MG TABLET PO SCH ×2 (08:04→14:17)
[2018-05-18] MEDS: Baclofen 10 MG TABLET PO SCH ×2 (08:04→14:17)
[2018-05-18 08:22] VITALS: BP 123/73
--- NOTE | 2018-05-18 12:58 | Discharge Summary ---
Date of Encounter: 05/18/18 Time of Encounter: 13:00 Diagnosis - Discharge Diagnosis (1) Major depressive disorder, recurrent severe without psychotic features Priority: Primary Status: Acute (2) Opioid dependence with withdrawal Priority: Secondary Status: Resolved (3) Cigarette smoker two packs a day or less Priority: Secondary Status: Chronic (4) Suicidal ideation Priority: Secondary Status: Acute Medications - Discharge Medications Baclofen [Lioresal] 10 mg PO TID tablet 05/18/18 [Rx] Citalopram [CeleXA] 20 mg PO DAILY tablet 05/18/18 [Rx] 3 Allergy/AdvReac Type Severity Reaction Status Date / Time tramadol [From Ultram] Allergy Rash Verified 05/14/18 17:15 Provider Date of admission: 05/14/18 23:34 Primary care physician: PCP NONE Discharging clinician: Tay Pino Psychiatry Exam - Constitutional Vitals: Temp Pulse Resp BP Pulse Ox 98.1 F 60 18 123/73 97 05/18/18 08:21 05/18/18 08:21 05/18/18 08:21 05/18/18 08:21 05/14/18 17:49 General appearance: age & developmentally appropriate - Musculoskeletal Gait: normal Station: relaxed Strength & Tone: normal for patient - Psychiatric Patient Orientation: Yes Person, Yes Time, Yes Place Level of alertness: Alert Behavior: calm Psychomotor activity: Normal Eye Contact: Maintains Eye Contact Mood Description: Euthymic/stable Affect description: congruent with mood Speech Volume: Normal Speech pattern: normal rate Language & Vocabulary: consistent with education Thought Process: Intact Thought Content: Yes Intact Perceptual Disturbances: No Auditory hallucinations, No Visual hallucinations Attention Span Ability: Capable of Focused Attention Memory Description: Grossly Intact Patient Reliability: Reliable Historian Fund of knowledge: Yes average, Yes aware of current events Intelligence Estimate: Average Judgment: Fair Insight: Partial Hospital Course Hospital course: Mr. Pack is a 23 year old male Chief complaint I need to clean up History of present illness the patient was admitted for major depression he had suicidal ideation. He thought about killing himself but came to the emergency room instead. The patient continued to have suicidal ideation. The patient developed depression and was seen previously. His medicines were restarted these included citalopram and Abilify but the patient had been in opiate withdrawal. He had some of the classic features of opiate withdrawal including restlessness insomnia muscle cramps nausea vomiting. The patient was treated with comfort meds including clonidine baclofen and Zofran. He gradually improved over a period of days. The patient was willing to consider medication assisted therapy. Specifically he was willing to consider naltrexone in the treatment. The patient had been on long-acting injectable naltrexone in the past and had some limited abstinence from opiates but not from other drugs of abuse. The patient had a variety of legal problems and sought rehabilitation. He participated minimally in groups and in activities as spent a lot of time in his room but he reported less suicidal thinking and prior to discharge reported no thoughts of suicide. The patient was discharged on the following medicines naltrexone 50 mg by mouth daily at bedtime one half tablet beginning on May 21 and on May 22 increasing to 50 mg daily at bedtime. Baclofen 10 mg 3 times a day when necessary. Clonidine 0.1 mg daily at bedtime. Celexa 10 mg every morning and Abilify 2 mg every morning. The patient planned to return to his grandmother's house where he would continue to work on his sobriety was encouraged to avoid alcohol and drugs of abuse he noted no side effects to the medicines. He did not have nausea at the time of discharge indicated not feel that he needed Zofran at that time. Time spent discussing smoking cessation with patient: 3 to 10 minutes Does patient wish to continue nicotine replacement upon disc: No - Time Spent with Patient Total time spent providing and/or coordinating discharge services: Greater than 30 minutes Assessment and Plan - Patient/Caregiver Discharge Instructions Activity: resume usual activities as tolerated Diet: regular diet Additional Instructions: The patient was advised to avoid alcohol and drugs of abuse. He was warned of the side effects of naltrexone. This would include notifying emergency personnel should he have an injury or require treatment with analgesics. He was told not to take naltrexone before May 21 as it might precipitate withdrawal symptoms - Follow up Plan Follow up with: NONE,PCP [Primary Care Provider] - Functional capacity at discharge: independent ambulation Overall status at discharge: Stable Disposition: Home, Self-Care Quality - Multiple Antipsychotics Patient discharged on 2 or more antipsychotic medications: No Procedures - Procedures Procedures: Medication Management, Crisis Stabilization, Supportive Therapy, Group Therapy, Psychoeducational Therapy
== END 2018-05-18 14:50 | disposition home or self-care (01) | DRG 751 ==
LOC: EMEROOARM 17:03 → 1ANU 23:34
PROVIDERS: ADMIT Psychiatry & Neurology Forensic Psychiatry; ATTEND Psychiatry & Neurology Forensic Psychiatry